=== PATIENT | female | born 1960 | race Asian ===

== ENCOUNTER 2019-04-14 07:18 | Outpatient (CLI) | payer OTHER | END 2019-04-14 19:29 | disposition home or self-care (01) | LOC: RAD 07:18 | DX: M25.562 Pain in left knee (principal) ==

== ENCOUNTER 2019-07-02 21:51 | Outpatient (CLI) | payer OTHER | END 2019-07-02 23:03 | disposition home or self-care (01) | LOC: RAD 21:51 | DX: M25.562 Pain in left knee (principal) ==

== ENCOUNTER 2019-12-12 09:43 | Emergency (ER) | payer OTHER ==
[~2019-12-12] VITALS: Ht 160 cm; Wt 63.5 kg
[2019-12-12 09:43] VITALS: TEMP 98.7
[2019-12-12 11:31] LABS: PLATELET COUNT 240 K/uL (152-353)
[2019-12-12 11:35] LABS: POTASSIUM 3.5 mmol/L (3.6-5.2); SODIUM 142 mmol/L (136-145)
[2019-12-12 12:21] LABS: PARTIAL THROMBOPLASTIN TIME 25.4 SECONDS (24.5-33.6)
[2019-12-12 16:00] VITALS: BP 132/79
== END 2019-12-12 16:05 | disposition home or self-care (01) ==
LOC: ED 09:43
PROVIDERS: Family Medicine
DX: B34.9 Viral infection, unspecified (principal); I10 Essential (primary) hypertension; Z20.828 Contact with and (suspected) exposure to other viral communicable diseases
CPT/HCPCS: 36415; 80053; 81000; 84484; 85027; 85379; 85610; 85730; 87635; 93005; 96360; 96375; 96376; 99284; J0360; J2405; Q9963; U0003

== ENCOUNTER 2020-06-25 07:17 | Outpatient (CLI) | payer OTHER ==
[2020-06-25 08:30] LABS: PLATELET COUNT 206 K/uL (152-353)
[2020-06-25 08:36] LABS: POTASSIUM 3.7 mmol/L (3.6-5.2)
== END 2020-06-25 20:39 | disposition home or self-care (01) ==
LOC: LABW 07:17
PROVIDERS: ATTEND Internal Medicine
DX: I10 Essential (primary) hypertension (principal); E53.8 Deficiency of other specified B group vitamins
CPT/HCPCS: 36415; 80053; 80061; 82607; 82746; 84436; 84443; 85027

== ENCOUNTER 2020-12-06 08:13 | Outpatient (CLI) | payer OTHER | END 2020-12-06 21:56 | disposition home or self-care (01) | LOC: MAMMO 08:13 | PROVIDERS: ATTEND Internal Medicine | DX: N64.59 Other signs and symptoms in breast (principal); Z12.31 Encounter for screening mammogram for malignant neoplasm of breast ==

== ENCOUNTER 2020-12-30 10:09 | Outpatient (CLI) | payer OTHER | END 2020-12-30 20:13 | disposition home or self-care (01) | LOC: US 10:09 | PROVIDERS: ATTEND Internal Medicine | DX: Z12.31 Encounter for screening mammogram for malignant neoplasm of breast (principal) ==

== ENCOUNTER 2021-12-17 08:48 | Outpatient (CLI) | payer BC | END 2021-12-17 19:06 | disposition home or self-care (01) | LOC: MAMMO 08:48 | PROVIDERS: ATTEND Internal Medicine | DX: Z12.31 Encounter for screening mammogram for malignant neoplasm of breast (principal) ==

== ENCOUNTER 2022-03-21 14:14 | Outpatient (CLI) | payer BC | END 2022-03-21 19:00 | disposition home or self-care (01) | LOC: RAD 14:14 | PROVIDERS: ATTEND Physician Assistant | DX: M25.561 Pain in right knee (principal) ==

== ENCOUNTER 2022-07-26 16:53 | Outpatient (CLI) | payer OTHER | END 2022-07-26 18:50 | disposition home or self-care (01) | LOC: RAD 16:53 | PROVIDERS: ATTEND Physician Assistant | DX: M25.561 Pain in right knee (principal) ==

== ENCOUNTER 2022-09-18 11:43 | Outpatient (CLI) | payer OTHER | END 2022-09-18 19:22 | disposition home or self-care (01) | LOC: RAD 11:43 | PROVIDERS: ATTEND Physician Assistant | DX: M25.552 Pain in left hip (principal) ==

== ENCOUNTER 2022-12-15 15:33 | Outpatient (CLI) | payer OTHER | END 2022-12-15 22:08 | disposition home or self-care (01) | LOC: RAD 15:33 | PROVIDERS: ATTEND Orthopaedic Surgery | DX: M25.552 Pain in left hip (principal) ==